=== PATIENT | female | born 1960 | race Caucasian/White ===

== ENCOUNTER → 2016-10-22 | Outpatient (CLI) | payer OTHER ==
--- NOTE | 2016-10-22 13:57 | CT ---
EXAMINATION TYPE: CT chest w con DATE OF EXAM: 10/22/2016 1:29 PM COMPARISON: April 11, 2016 HISTORY: right lung nodule CT DLP: 206.4 mGycm Automated exposure control for dose reduction was used. CONTRAST: CT scan of the chest is performed with IV Contrast, patient injected with 100 mL of Omnipaque 300. FINDINGS: LUNGS: No evidence for pulmonary nodule or mass. Small area of enhancing atelectasis or parenchymal s carring right lung base seen previously. Additional postinflammatory change right lower lobe. The rem ainder of the lungs are clear. MEDIASTINUM: Stable mediastinal adenopathy with pretracheal lymph node at 1.3 cm versus 1.3 cm previo usly. Additional subcentimeter left paratracheal and AP window lymph nodes identified. The heart is m ildly enlarged. Thoracic aorta is of normal caliber. UPPER ABDOMEN: No significant abnormality appreciated. OTHER: No additional significant abnormality is seen. IMPRESSION: 1. No evidence for pulmonary nodule or mass. Stable right basilar atelectasis and parenchymal scar.
== END | disposition home or self-care (01) ==
LOC: RADCTMAIN 13:00
PROVIDERS: ATTEND Family Medicine
DX: J98.11 Atelectasis (principal); J98.4 Other disorders of lung
CPT/HCPCS: 71260; Q9967

== ENCOUNTER → 2017-05-28 | Outpatient (CLI) | payer MEDICARE, OTHER ==
--- NOTE | 2017-05-29 21:56 | MR ---
EXAMINATION TYPE: MR brain wo/w con DATE OF EXAM: 05/28/2017 COMPARISON: 12/03/2015 HISTORY: 56-year-old female with unspecified White matter changes TECHNIQUE: Multiplanar, multisequence images of the brain and brainstem is performed without and with utilizing 7.0 mL intravenous Gadavist gadolinium contrast. Demyelinating disease protocol with anthony tional Sagittal Flair sequence performed. FINDINGS: T2 Lesions Present : Yes Approximate Number of Lesions: 2 within each cerebral hemisphere and a couple within the left paramed howard anand. Locations Identified : Bifrontal subcortical white matter and left paramedian anand. Size of Reference Lesion(s): 1. 3 mm right frontal lobe axial image 20, unchanged. 2 2.5 mm anterior left frontal lobe axial image 22, new. Enhancing Lesion(s) Present: No T1 Hypointense Lesion(s) Present: Yes Change from Prior: 1 new lesion in the anterior left frontal lobe. Diffusion weighted images demonstrate no evidence of a recent infarct or other diffusion abnormality. There is no worrisome extra-axial fluid collection. The ventricular system and cisternal spaces ar e normal in size and appearance. The brain volume is age appropriate. Midline structures demonstrate normal morphology. The craniocervical junction appears within normal limits. Post contrast images demonstrate no abnormal enhancement. The dural venous sinuses appear pa tent. Mild mucosal thickening within the left greater than right ethmoid air cells. Globes are intact. IMPRESSION: Minimal burden of T2 bright white matter change with a couple foci on each side and a couple foci in the anand. A single 2.5 mm lesion in the left frontal lobe appears new. Findings remain nonspecific an d clinical correlation is recommended. No abnormal enhancement.
== END | disposition home or self-care (01) ==
LOC: RADMRIMAIN 14:34
PROVIDERS: ATTEND Psychiatry & Neurology Neurology
DX: R90.82 White matter disease, unspecified (principal); G93.89 Other specified disorders of brain
CPT/HCPCS: 70553; A9581

== ENCOUNTER → 2018-11-18 | Outpatient (CLI) | payer MEDICARE, OTHER | LOC: LABWHC1 13:07 | PROVIDERS: ATTEND Nurse Practitioner Acute Care | DX: G35 Multiple sclerosis (principal) | CPT/HCPCS: 36415; 82040; 82042; 82784; 83916 ==

== ENCOUNTER → 2024-09-23 | Day surgery (SDC) | payer MEDICARE, OTHER ==
[~2024-09-23] MED LIST: LACTATED RINGERS 1,000 ML IV SCH; LIDOCAINE 1% (10MG/ML) FOR IV START INTRADERMA PRN; PROPOFOL 10 MG/ML 20 ML VIAL IV ONE; SODIUM CHLORIDE 0.9% 1,000 ML IV SCH
[2024-09-23] MEDS: SODIUM CHLORIDE 0.9% 500 ML 500 ML IV SCH (09:28)
[2024-09-23 09:30] VITALS: TEMP 97.8
[2024-09-23] MEDS: SODIUM CHLORIDE 0.9% 500 ML 500 ML IV ONE (09:30)
[2024-09-23 09:49] LABS: African American GFR (CKD) >90 (>60 ml/min/1.73 sqM); Anion Gap 6 mmol/L; Blood Urea Nitrogen 22 mg/dL (7-17); Calcium 8.7 mg/dL (8.4-10.2); Carbon Dioxide 27 mmol/L (22-30); Chloride 107 mmol/L (98-107); Glucose 95 mg/dL (74-99); Non-African American GFR(CKD) >90 (>60 ml/min/1.73 sqM); Potassium 4.2 mmol/L (3.5-5.1); Sodium 140 mmol/L (137-145)
[2024-09-23] MEDS: BENZOCAINE SPRAY 1 EACH MM ONE (09:59)
[2024-09-23 11:07] VITALS: RESP 16
[2024-09-23 11:30] VITALS: BP 104/64; PULSE 62
--- NOTE | 2024-09-23 14:07 | PCN ---
PROCEDURE NOTE CARDIOVERSION NOTE: INDICATION: Persistent atrial fibrillation. PROCEDURE NOTE: After obtaining informed consent, cardioversion was performed using 150 joules of synchronized DC current. The patient is adequately anticoagulated with Eliquis. I initially attempted a transesophageal echo, but I was unable to intubate the patient. Hence, I decided to cancel the transesophageal echo and proceed with cardioversion. The patient converted to sinus rhythm following a single shock and she will continue the Eliquis that she is on. MMODL / IJN: [id number] /
== END ==
LOC: OR 08:30
PROVIDERS: ATTEND Internal Medicine Cardiovascular Disease
DX: I48.19 Other persistent atrial fibrillation (principal); I34.0 Nonrheumatic mitral (valve) insufficiency; E78.5 Hyperlipidemia, unspecified; F17.210 Nicotine dependence, cigarettes, uncomplicated; F90.9 Attention-deficit hyperactivity disorder, unspecified type; F32.A Depression, unspecified; F41.9 Anxiety disorder, unspecified; J44.9 Chronic obstructive pulmonary disease, unspecified; M06.9 Rheumatoid arthritis, unspecified; G60.9 Hereditary and idiopathic neuropathy, unspecified; Z82.49 Family history of ischemic heart disease and other diseases of the circulatory system; Z95.1 Presence of aortocoronary bypass graft; Z95.2 Presence of prosthetic heart valve; Z79.899 Other long term (current) drug therapy
CPT/HCPCS: 92960; 80048; J2704